=== PATIENT | male | born 1965 | race Caucasian/White ===

== ENCOUNTER 2017-01-31 16:25 | Emergency (ER) | payer OTHER | END 2017-01-31 19:35 | disposition home or self-care (01) | LOC: ER1 16:25 | DX: S20.211A Contusion of right front wall of thorax, initial encounter (principal); F17.290 Nicotine dependence, other tobacco product, uncomplicated; X58.XXXA Exposure to other specified factors, initial encounter; Y92.009 Unspecified place in unspecified non-institutional (private) residence as the place of occurrence of the external cause | CPT/HCPCS: 71101; 99284 ==

== ENCOUNTER 2017-04-25 17:02 | Emergency (ER) | payer OTHER | END 2017-04-25 18:53 | disposition home or self-care (01) | LOC: ER1 17:02 | DX: S92.312A Displaced fracture of first metatarsal bone, left foot, initial encounter for closed fracture (principal); M19.90 Unspecified osteoarthritis, unspecified site; I10 Essential (primary) hypertension; Z79.899 Other long term (current) drug therapy; W22.8XXA Striking against or struck by other objects, initial encounter | CPT/HCPCS: 29515; 73630; 99283 ==

== ENCOUNTER 2017-08-12 09:01 | Emergency (ER) | payer OTHER ==
[2017-08-12 10:12] LABS: HEMOGLOBIN 15.3 gm/dl (14.0-17.5); RED BLOOD COUNT 4.97 M/UL (4.20-5.50); WHITE BLOOD COUNT 12.1 K/UL (4.5-11.0)
[2017-08-12 10:47] LABS: ADENOVIRUS F 40/41 Not Detected (Negative); ASTROVIRUS Not Detected (Negative); CAMPYLOBACTER Not Detected (Negative); CLOSTRIDIUM DIFFICILE TOX A/B Not Detected (Negative); CRYPTOSPORIDIUM Not Detected (Negative); E.COLI 0157 Not Detected (Negative); ENTAMOEBA HISTOLYTICA Not Detected (Negative); ENTEROAGGREGATIVE E.COLI (EAEC Not Detected (Negative); ENTEROPATHOGENIC E.COLI (EPEC) Not Detected (Negative); ENTEROTOXIGENIC E.COLI (ETEC) Not Detected (Negative); GIARDIA LAMBLIA Not Detected (Negative); NOROVIRUS GI/GII Not Detected (Negative); PLESIOMONAS SHIGELLOIDES Not Detected (Negative); ROTOVIRUS A Not Detected (Negative); SALMONELLA Not Detected (Negative); SAPOVIRUS Not Detected (Negative); SHIG/ENTEROINVAS.ECOLI (EIEC) Not Detected (Negative); SHIGA-LIK TOX.PRO.E.COLI (STEC Not Detected (Negative); VIBRIO Not Detected (Negative); VIBRIO CHOLERAE Not Detected (Negative); YERSINIA ENTEROCOLITICA Not Detected (Negative)
[2017-08-12 10:54] LABS: BUN/CREATININE RATIO 23 (0-10)
== END 2017-08-12 13:35 | disposition home or self-care (01) ==
LOC: ER1 09:01
PROVIDERS: Physician Assistant
DX: R10.31 Right lower quadrant pain (principal); R10.32 Left lower quadrant pain; R11.2 Nausea with vomiting, unspecified; R19.7 Diarrhea, unspecified; I10 Essential (primary) hypertension; J44.9 Chronic obstructive pulmonary disease, unspecified
CPT/HCPCS: 36415; 80053; 81001; 82150; 83605; 83690; 84484; 85025; 87040; 87177; 87507; 89055; 96361; 96374; 96375; 99284; J2270; J2405; J7030; J7050; Q9962

== ENCOUNTER 2020-12-28 17:16 | Emergency (ER) | payer OTHER ==
[2020-12-28 19:04] LABS: HEMOGLOBIN 10.1 gm/dl (14.0-17.5); RED BLOOD COUNT 3.58 M/UL (4.20-5.50); WHITE BLOOD COUNT 12.1 K/UL (4.5-11.0)
[2020-12-28 19:22] LABS: BUN/CREATININE RATIO 22 (0-10)
== END 2020-12-29 00:05 | disposition home or self-care (01) ==
LOC: ER1 17:16
PROVIDERS: Family Medicine
DX: S30.22XA Contusion of scrotum and testes, initial encounter (principal); I10 Essential (primary) hypertension; Z87.820 Personal history of traumatic brain injury; Z79.02 Long term (current) use of antithrombotics/antiplatelets; W54.1XXA Struck by dog, initial encounter; W19.XXXA Unspecified fall, initial encounter
CPT/HCPCS: 36415; 76870; 80053; 81001; 85025; 99284; Q9967

== ENCOUNTER 2021-04-22 08:47 | Emergency (ER) | payer OTHER ==
[2021-04-22 10:30] LABS: HEMOGLOBIN 7.6 gm/dl (14.0-17.5); RED BLOOD COUNT 3.12 M/UL (4.20-5.50); WHITE BLOOD COUNT 14.6 K/UL (4.5-11.0)
[2021-04-22 11:04] LABS: BUN/CREATININE RATIO 19 (0-10)
== END 2021-04-22 17:18 | disposition other institution (70) ==
LOC: ER1 08:47
PROVIDERS: Emergency Medicine
DX: T24.101A Burn of first degree of unspecified site of right lower limb, except ankle and foot, initial encounter (principal); T25.112A Burn of first degree of left ankle, initial encounter; T20.16XA Burn of first degree of forehead and cheek, initial encounter; T20.14XA Burn of first degree of nose (septum), initial encounter; T20.13XA Burn of first degree of chin, initial encounter; T21.10XA Burn of first degree of trunk, unspecified site, initial encounter; T31.22 Burns involving 20-29% of body surface with 20-29% third degree burns; J44.9 Chronic obstructive pulmonary disease, unspecified; I10 Essential (primary) hypertension; D64.9 Anemia, unspecified; D72.829 Elevated white blood cell count, unspecified; E87.6 Hypokalemia; Z86.73 Personal history of transient ischemic attack (TIA), and cerebral infarction without residual deficits; X10.2XXA Contact with fats and cooking oils, initial encounter
CPT/HCPCS: 16020; 80053; 82550; 82553; 83605; 83874; 84484; 85025; 87040; 93005; 99283; J7030

== ENCOUNTER 2021-10-29 22:09 | Emergency (ER) | payer OTHER ==
[2021-10-29 23:19] LABS: HEMOGLOBIN 11.8 gm/dl (14.0-17.5); RED BLOOD COUNT 4.66 M/UL (4.20-5.50); WHITE BLOOD COUNT 7.7 K/UL (4.5-11.0)
[2021-10-29 23:43] LABS: BUN/CREATININE RATIO 13 (0-10)
== END 2021-10-30 01:39 | disposition home or self-care (01) ==
LOC: ER1 22:09
PROVIDERS: Emergency Medicine
DX: G91.9 Hydrocephalus, unspecified (principal)
CPT/HCPCS: 70450; 80053; 82550; 82553; 83874; 84484; 85025; 93005; 99285